=== PATIENT | male | born 1990 | race Native Hawaiian/Other Pacific Islander ===

== ENCOUNTER 2017-01-31 07:31 | Emergency (ER) | payer OTHER ==
[~2017-01-31] VITALS: Ht 165.1 cm; Wt 86.2 kg
[2017-01-31 07:20] VITALS: BP 122/68; TEMP 98.4
== END 2017-01-31 08:20 | disposition home or self-care (01) ==
LOC: ED 07:31
DX: S61.231A Puncture wound without foreign body of left index finger without damage to nail, initial encounter (principal); Y35.491A Legal intervention involving other sharp objects, law enforcement official injured, initial encounter; Y92.89 Other specified places as the place of occurrence of the external cause; Z11.4 Encounter for screening for human immunodeficiency virus [HIV]
CPT/HCPCS: 36415; 80074; 86703; 90471; 90715; 96374; 99284; G0432; J0696

== ENCOUNTER 2017-02-16 00:47 | Emergency (ER) | payer OTHER ==
[~2017-02-16] VITALS: Ht 165.1 cm; Wt 86.2 kg
[2017-02-16] MEDS ORDERED: PROCTOSOL HC2.5 % RE (01:01)
[2017-02-16 01:18] VITALS: BP 123/76; TEMP 98.7
== END 2017-02-16 01:20 | disposition home or self-care (01) ==
LOC: ED 00:47
PROC: 069Y3ZZ Drainage of Lower Vein, Percutaneous Approach (ICD-10-PCS; principal; 2017-02-16)
DX: K64.5 Perianal venous thrombosis (principal)
CPT/HCPCS: 96372; 99282; J1885